=== PATIENT | female | born 1960 | race Caucasian/White ===

== ENCOUNTER 2024-01-08 07:37 | Day surgery (SDC) | payer OTHER, SELFPAY ==
[2024-01-08] VITALS (16 sets, daily range): BP systolic 117–150; BP diastolic 69–92; BMI 27.5
[2024-01-08] MEDS: NSS 225 ML IV (08:10)
[2024-01-08] MEDS: LOW STRENGTH ASPIRIN 81 MG PO (08:11)
[2024-01-08 08:33] LABS: Glucose - Point of Care 120 mg/dl (70-99)
--- NOTE | 2024-01-08 09:35 | ITS.CL.CATH ---
Spreader - Catheterization
Cardiac Catheterization
Procedure Report:
CARDIAC CATHETERIZATION REPORT
Date of Procedure: 01/08/2024
Referring: Kj Danielson M.D.
INDICATION: Chest pain, suspicious for cardiac disease.
PROCEDURE:
1. Left heart catheterization.
2. Coronary angiography.
3. Left ventriculography.
ACCESS:
6 [place] right radial artery.
CATHETERS:
1. 5 [place] JR4.
2. 5 [place] JL 3.5.
3. 5 [place] angled pigtail.
HEMODYNAMIC DATA
Weight (kg): 74.8
AO (s/d/x, mmHg): 143/88/114
LV (s/x mmHg): 143/12
LEFT VENTRICULOGRAPHY: Performed in an DOUGLAS projection. Normal left ventricular size with normal to hyperdynamic systolic function. Left ventricular ejection fraction estimated at 70%. There are no regional wall motion abnormalities. There is no
significant mitral valve regurgitation. There is no aortic valve insufficiency. The aortic root is normal. The ascending aorta does appear mildly to moderately dilated.
CORONARY ANGIOGRAPHY
Dominance: Right.
Left Main: Normal size, bifurcating vessel. There is no coronary artery disease.
LAD: Normal size vessel giving rise to 1 significant diagonal. The vessel is severely tortuous. There is a 30% lesion at the origin of the diagonal.
Ramus: Congenitally absent.
Circumflex: Large size, nondominant vessel that is essentially two large marginals. Both marginals are severely tortuous. The first obtuse marginal has a nearly 90 degree upwards origin. There is no coronary artery disease.
RCA: Normal size, dominant vessel. There is no coronary artery disease.
INTERVENTION(S)
None.
Closure Device: Vascular band.
Radiation (mGy): 290.21
DAP (cm2.Gy): 19.9375
Fluoroscopy time (minutes): 2.5
Sedation time (minutes): 19
CONCLUSIONS
1. Right dominant circulation with severe tortuosity in the coronary vessels and a 30% lesion in the origin of a diagonal without any other significant coronary artery disease.
2. Normal left ventricular size with normal to hyperdynamic systolic function. Left ventricular ejection fraction estimated at 70%.
3. Normal filling pressures (LVEDP = 12 mmHg at 74.8 kg).
4. Mild to moderate ascending aortic dilation.
RECOMMENDATIONS:
1. Expectant management after cardiac catheterization via right radial approach.
2. Limited weight bearing on the right wrist for one week.
3. Continue primary prevention with blood pressure control as well as medication of other risk factors.
4. The patient may benefit from high-dose, high potency statin as she does have some atherosclerotic burden in the diagonal.
5. Surveillance of the ascending aorta.
6. Consider other diagnoses for her chest discomfort and shortness of breath. I suspect that her original presentation may have been due to Takotsubo cardiomyopathy based on clinical history.
Copy to: Kj Danielson M.D., Sharif Olson Jr., M.D.
Gen Lang DO, FACC, FACP
[2024-01-08] MEDS: NSS 1000 IV (09:36)
[2024-01-08] MEDS: TYLENOL 650 MG PO (09:42)
== END 2024-01-08 14:00 | disposition home or self-care (01) ==
LOC: CATH 07:37
PROVIDERS: ATTENDING PHYSICIAN Internal Medicine Cardiovascular Disease; FAMILY PHYSICIAN Internal Medicine; OTHER PHYSICIAN Internal Medicine Cardiovascular Disease
DX: I25.10 Atherosclerotic heart disease of native coronary artery without angina pectoris (principal); R07.9 Chest pain, unspecified; R06.09 Other forms of dyspnea; I25.2 Old myocardial infarction; I10 Essential (primary) hypertension; E78.5 Hyperlipidemia, unspecified; E11.9 Type 2 diabetes mellitus without complications; Z79.02 Long term (current) use of antithrombotics/antiplatelets; Z79.84 Long term (current) use of oral hypoglycemic drugs
CPT/HCPCS: 82962; 93458; C1894; Q9967